=== PATIENT | male | born 1960 | race Caucasian/White ===

== ENCOUNTER 2021-04-30 08:42 | Emergency (ER) | payer OTHER, SELFPAY ==
[2021-04-30 08:43] VITALS: BP 165/101; PULSE 85; RESP 16; TEMP 36.7; O2SAT 95; BMI 23.6
--- NOTE | 2021-04-30 09:04 | EX.ED.UPPERE ---
HPI History of Present Illness Chief Complaint: Upper Extremity Injury Informant: patient Occured/Mechanism Comment: Laceration Onset/Context/Timing Onset: Today Current Severity: Mild Maximum Severity: Moderate Narrative Narrative: Patient present secondary laceration to the left third finger. Patient states he was using a razor blade when he cut his left third finger. He believes his tetanus is up-to-date. He is not on anticoagulants. He reports his tetanus shot is up-to-date. PFSH PFS Medical History Asthma Hypertension Allergy/AdvReac Type Severity Reaction Status Date / Time No Known Allergies Allergy Verified 04/30/21 08:45 Social History Smoking Status: Never smoker ROS ROS ED Constitutional Constitutional ED: Denies chills Eyes Eyes: Denies change in vision ENT ENT ED: Denies rhinorrhea or sore throat Cardiovascular Cardiovascular: Denies chest pain Respiratory/Chest Respiratory/Chest: Denies cough or dyspnea Gastrointestinal Gastrointestinal: Denies abdominal pain Musculoskeletal Musculoskeletal: Reports myalgias Integumentary Reports other Details: Finger laceration Neurologic Neurologic: Denies paresthesias or weakness Hematologic/Lymphatic Hematologic/Lymphatic: Denies easy bleeding or easy bruising EXAM Physical Exam Const Vital Signs: 04/30/21 08:43 Temperature 98.0 F Temperature Source Temporal Pulse Rate 85 Respiratory Rate 16 Blood Pressure 165/101 H Blood Pressure Mean 122 Pulse Ox 95 Oxygen Delivery Method Room Air Positive well nourished and well developed General Appearance ED: well developed HEENT atraumatic Eyes EOMs intact bilaterally Neck supple Chest Wall inspection of chest normal Resp normal respiratory effort Cardio regular rate and regular rhythm Extremity Extremity Narrative: 2 cm laceration across the middle phalanx of the left third finger on extensor surface. Mild bleeding noted. Good range of motion with good cap refill and sensation distally. Neuro oriented x3 Sensorium / Orientation: alert Skin Skin Narrative: Finger laceration as noted above. MDM MDM MDM Narrative Medical decision making narrative: Finger laceration repaired. Please see procedure note. Treatment and Re-Evaluation Comments:: Patient is have sutures removed in 7 to 10 days. Wound care discussed. Procedures Lacerations Left third finger laceration: Length: 0.79 in Depth: Sub Q Shape: Linear Laceration repair: Digital block, Irrigated and Lidocaine Number of Sutures/Whitney: 7 Comment: Digital block performed using 4 cc of 1% lidocaine. Patient did have small arterial bleed. 2 interrupted sutures with rapid Vicryl placed. Skin then closed with 5 additional sutures of 4-0 nylon. Discharge Plan Triage Chief Complaint: Upper Extremity Injury ED Provider: Francie Gambino Dx/Rx/DC Orders Clinical Impression: Finger laceration Instructions: ED Laceration, Hand: All Closures Referrals: Rancho Ortiz MD [NON-STAFF] - 10 Day for suture removal Disposition Disposition: Home, Self Care
[2021-04-30] MEDS: Lidocaine 1% (20 ml mdv) 20 ML Vial INFILT (09:12)
== END 2021-04-30 09:44 | disposition home or self-care (01) ==
LOC: ED 09:40
PROVIDERS: Emergency Provider Emergency Medicine
DX: S61.213A Laceration without foreign body of left middle finger without damage to nail, initial encounter (principal); W26.9XXA Contact with unspecified sharp object(s), initial encounter
CPT/HCPCS: 12001; 99283